=== PATIENT | male | born 1950 ===

== ENCOUNTER 2016-12-03 10:19 | Observation (INO) | payer MEDICAID, MEDICARE ==
[2016-12-03 10:25] VITALS: BMI 31.2
[2016-12-03 10:33] VITALS: TEMP 97.7
[2016-12-03 11:38] LABS: ADD MANUAL DIFF? NO
[2016-12-03 11:39] LABS: BASO # 0.06 K/mm3 (0.0-2.0); BASO % 0.4 % (0.0-3.0); EOS # 1.6 (0.0-0.7); EOS % 11.8 % (1.5-5.0); GRAN # 5.68 (1.4-6.5); GRAN % 41.3 % (50.0-68.0); HEMATOCRIT 45.1 % (42.0-52.0); LYMPH # 5.4 (1.2-3.4); LYMPH % 39.1 % (22.0-35.0); MEAN CELL VOLUME 90.2 fL (80.0-105.0); MEAN CORPUSCULAR HEMOGLOBIN 30.8 pg (25.0-35.0); MEAN CORPUSCULAR HGB CONC 34.1 g/dl (31.0-37.0); MEAN PLATELET VOLUME 9.3 fl (7.0-11.0); MONO % 7.4 % (1.0-6.0); PLATELET COUNT 349 10^3/uL (120.0-450.0); RED CELL DISTRIBUTION WIDTH 13.6 % (11.5-14.5); WHITE BLOOD COUNT 13.8 10^3/ul (4.5-11.0)
[2016-12-03 11:45] LABS: INR 1.09 (0.93-1.08); PARTIAL THROMBOPLASTIN TIME 29.5 Seconds (23.7-30.8)
--- NOTE | 2016-12-03 11:51 | ED PDOC ---
Arrival/HPI - General Chief Complaint: Chest Pain Time Seen by Provider: 12/03/16 11:12 Historian: Patient, Family (Daughter - pony ride attendant) - History of Present Illness Narrative History of Present Illness (Text): Dennis Arango is a 66 year old male, whose past medical history includes hernias, arthritis, hypertension, CHF, and a cardiovascular defibrillator, who presents to the emergency department complaining of an intermittent burning sensation in the center of his chest from his epigastrium for about a week. Patient states that he experiences associated nausea and sweating. Patient states that he tried Maalox which brought no relief and has not taken any other medications for his symptoms. He states the symptoms do seem related to eating. Patient also reports right shoulder to hand numbness for a little over a week. Patient has no other complaint at this time. PMD: [facility]. Cards: Edwin. Time/Duration: 1 week Symptom Onset: Gradual Symptom Course: Intermittent Quality: Burning Activities at Onset: Rest Modifying Factors (Text): None Context: Home Past Medical History - Provider Review Nursing Documentation Reviewed: Yes - Cardiac Hx Congestive Heart Failure: Yes Hx Hypertension: Yes Hx Internal Defibrillator: Yes Hx Pacemaker: Yes - Psychiatric Hx Substance Use: No - Surgical History Other/Comment: hernia surgery Family/Social History - Physician Review Nursing Documentation Reviewed: Yes Family/Social History: No Known Family HX Smoking Status: Unknown If Ever Smoked Hx Alcohol Use: No Hx Substance Use: No Allergies/Home Meds Allergies/Adverse Reactions: Allergies No Known Allergies Allergy (Verified 12/03/16 10:25) Home Medications: Home Meds Medication Instructions Recorded Confirmed Unobtainable 12/03/16 12/03/16 Review of Systems - Physician Review All systems were reviewed & negative as marked: Yes - Review of Systems Constitutional: absent: Fevers, Night Sweats Eyes: absent: Vision Changes ENT: absent: Hearing Changes Respiratory: absent: SOB, Cough Cardiovascular: Chest Pain (Burning sensation) Gastrointestinal: absent: Abdominal Pain Genitourinary Male: absent: Urinary Output Changes Musculoskeletal: Other (Pain from right shoulder down to hand). absent: Back Pain, Neck Pain Skin: absent: Rash Neurological: absent: Headache, Dizziness Endocrine: absent: Polyuria Hemo/Lymphatic: absent: Easy Bleeding Psychiatric: absent: Depression Physical Exam - Physical Exam Narrative Physical Exam (Text): Constitutional: No acute distress. Head: Normocephalic. Atraumatic. Eyes: PERRL. ENT: Moist mucous membranes. Neck: Supple. Cardiovascular: Left-sided defibrillator. Regular rate. Chest: No tenderness. Respiratory: Clear to auscultation bilaterally. GI: Soft. Nontender. Nondistended. Back: No CVA tenderness. Musculoskeletal: No tenderness or swelling of extremities. Skin: No rash. Neurologic: Alert, no focal deficit. Vital Signs Reviewed: Yes Vital Signs Temp Pulse Pulse Resp BP BP Pulse Ox 12/03/16 15:31 69 18 145/63 97 12/03/16 13:34 74 18 148/64 97 12/03/16 12:07 79 18 152/69 H 96 12/03/16 10:33 97.7 F 81 16 155/74 H 96 12/03/16 10:20 68 155/74 H Temperature: Afebrile Blood Pressure: Hypertensive Pulse: Regular Respiratory Rate: Normal Appearance: Positive for: Well-Appearing, Non-Toxic, Comfortable Pain Distress: None Mental Status: Positive for: Alert and Oriented X 3 Medical Decision Making ED Course and Treatment: 12/03/16 12:07 Impression: 66 year old male complaining of burning sensation in center of chest area for about one week. Plan: -- EKG -- Aspirin -- Labs -- Reassess and disposition Progress Notes: EKG: Ordered, reviewed, and independently interpreted the EKG. Rate : 90 BPM Rhythm : Ventricularly paced rhythm Interpretation : No ST elevations 12/03/16 12:12 Chest X-ray: Creator : Gregg Shea MD FINDINGS: LUNGS:Mild increased pulmonary vascular congestion. PLEURA:No significant pleural effusion identified, no pneumothorax apparent. CARDIOVASCULAR:Enlarged heart. OSSEOUS STRUCTURES:The osseous structures demonstrate degenerative changes. VISUALIZED UPPER ABDOMEN:Upper abdomen is suboptimally evaluated. OTHER FINDINGS:Left-sided AICD. IMPRESSION: Mild increased pulmonary vascular congestion. Please note that chest radiographs have low sensitivity for small pulmonary nodules. If indicated, chest CT should be obtained. - Lab Interpretations Lab Results: 12/03/16 11:37 12/03/16 11:37 Lab Results 12/03/16 11:37: Sodium 141, Potassium 3.9, Chloride 103, Carbon Dioxide 25, Anion Gap 17, BUN 15, Creatinine 0.8, Est GFR ( Amer) > 60, Est GFR (Non- Af Amer) > 60, Random Glucose 91, Calcium 9.5, Total Bilirubin 1.4 H, AST 42, ALT 33, Alkaline Phosphatase 106, Total Creatine Kinase 261 H, CK-MB (CK-2) 4.8 H, CK-MB (CK-2) % Cancelled, Troponin I 0.03, NT-Pro-B Natriuret Pep 847 H, Total Protein 9.2 H, Albumin 4.6, Globulin 4.6, Albumin/Globulin Ratio 1.0 L, Lipase 55 12/03/16 11:37: PT 11.8, INR 1.09 H, APTT 29.5 12/03/16 11:37: WBC 13.8 H, RBC 5.00, Hgb 15.4, Hct 45.1, MCV 90.2, MCH 30.8, MCHC 34.1, RDW 13.6, Plt Count 349, MPV 9.3, Gran % 41.3 L, Lymph % (Auto) 39.1 H, Lawrence % (Auto) 7.4 H, Eos % (Auto) 11.8 H, Baso % (Auto) 0.4, Gran # 5.68, Lymph # 5.4 H, Lawrence # 1.0 H, Eos # 1.6 H, Baso # 0.06 I have reviewed the lab results: Yes - RAD Interpretation Radiology Orders: 12/03/16 11:23 CHEST PORTABLE [RAD] Stat - Medication Orders Current Medication Orders: Discontinued Medications Al Hydrox/Mg Hydrox/Simethicone (Maalox Plus 30 Ml) 30 ml PO STAT STA Stop: 12/03/16 13:43 Last Admin: 12/03/16 15:13 Dose: 30 ml Aspirin (Aspirin) 325 mg PO STAT STA Stop: 12/03/16 11:24 Last Admin: 12/03/16 11:51 Dose: 325 mg ED OBSERVATION Discharge: Yes Date of observation admission: 12/03/16 Time of observation admission: 13:20 - Observation admission statement Patient is being placed in observation because:: 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 Patient states lingering burning pain in epigastrium. No acute distress. Awaiting interrogation. 12/03/16 16:35 Interrogation performed, there were no discharges for months and no recorded arrhythmias for months. The patient clarifies that he feels a tingling in his L sided chest, but that these were not large shocks. The patient has a negative troponin after 1 week of this pain and interrogation was unremarkable. Stable for discharge and follow up with Dr. Pineda in office. Instructed to return to the ER for worsening pain, dyspnea, or defibrillator shocks. - Scribe Statement The provider has reviewed the documentation as recorded by the Ann-Marie Mccartney Provider Scribe Attestation: All medical record entries made by the Ann-Marie were at my direction and personally dictated by me. I have reviewed the chart and agree that the record accurately reflects my personal performance of the history, physical exam, medical decision making, and the department course for this patient. I have also personally directed, reviewed, and agree with the discharge instructions and disposition. Disposition/Present on Arrival - Present on Arrival Any Indicators Present on Arrival: No History of DVT/PE: No History of Uncontrolled Diabetes: No Urinary Catheter: No History of Decub. Ulcer: No History Surgical Site Infection Following: None - Disposition Have Diagnosis and Disposition been Completed?: Yes Diagnosis: Epigastric burning sensation Disposition: HOME/ ROUTINE Disposition Time: 15:15 Patient Plan: Discharge Condition: STABLE
--- NOTE | 2016-12-03 11:52 | RAD ---
HISTORY: cp COMPARISON: No prior. FINDINGS: LUNGS: Mild increased pulmonary vascular congestion. PLEURA: No significant pleural effusion identified, no pneumothorax apparent. CARDIOVASCULAR: Enlarged heart. OSSEOUS STRUCTURES: The osseous structures demonstrate degenerative changes. VISUALIZED UPPER ABDOMEN: Upper abdomen is suboptimally evaluated. OTHER FINDINGS: Left-sided AICD. IMPRESSION: Mild increased pulmonary vascular congestion. Please note that chest radiographs have low sensitivity for small pulmonary nodules. If indicated, chest CT should be obtained.
[2016-12-03 12:07] VITALS: RESP 18
[2016-12-03 12:11] LABS: ALKALINE PHOSPHATASE 106 U/L (38-133); ALT/SGPT 33 U/L (7-56); AST/SGOT 42 U/L (15-59); BILIRUBIN,TOTAL 1.4 mg/dL (0.2-1.3); BLOOD UREA NITROGEN 15 mg/dL (7-21); CALCIUM 9.5 mg/dL (8.4-10.5); CARBON DIOXIDE 25 mmol/L (21-33); CHLORIDE 103 mmol/L (98-107); GFR AFRICAN-AMERICAN > 60; GLUCOSE,RANDOM 91 mg/dL (70-110); LIPASE 55 U/L (23-300); POTASSIUM 3.9 mmol/L (3.6-5.0); SODIUM 141 mmol/L (132-148); TOTAL PROTEIN 9.2 g/dL (5.8-8.3)
[2016-12-03 12:21] LABS: TROPONIN I 0.03 ng/mL
[2016-12-03 13:34] VITALS: O2SAT 97
[2016-12-03] MEDS ORDERED: Alum-Mag Hydrox-Simethicone Susp (30 mL) PO STA (13:42)
[2016-12-03 15:31] VITALS: BP 145/63; PULSE 69
--- NOTE | 2016-12-04 10:15 | CARD ---
APPROVED REPORT EKG Measurement Heart [id number] <Conclusion> Electronic ventricular pacemaker: 100 % V. Paced and A. Sensed
== END 2016-12-03 15:15 | disposition home or self-care (01) ==
LOC: ED 10:19 → EROBSV 14:33
PROVIDERS: ADMIT Student in an Organized Health Care Education/Training Program; ATTEND Student in an Organized Health Care Education/Training Program
DX: R10.13 Epigastric pain (principal); I10 Essential (primary) hypertension
CPT/HCPCS: 71010; 80053; 82550; 82553; 83690; 83880; 84484; 85025; 85610; 85730; 93005; 99285; G0378